=== PATIENT | female | born 1945 | race Asian ===

== ENCOUNTER 2017-10-06 11:09 | Inpatient (IN) | payer OTHER ==
[~2017-10-06] VITALS: Ht 152.4 cm; Wt 83.9 kg
[2017-10-06] VITALS (12 sets, daily range): BP systolic 98–161; BP diastolic 81–99; TEMP 98–98.5; Ht 152.4 cm; Wt 83.9 kg
[~2017-10-06 11:09] MED LIST: ACID REDUCER150 M1 PO; AMLODIPINE BESYLATE PO; DOXYCYCL HYC100 MG PO; MAG OXIDE400 M2 PO; METOCLOPRAM10 MG PO; PANTOPRAZOLE 40MG TA PO; VENL37.511 PO
--- NOTE | 2017-10-06 11:20 | NUR ---
REPORT RECEIVED FROM SHARI VITALE RN FROM [facility] AT THIS TIME
--- NOTE | 2017-10-06 11:23 | NUR ---
PT ARRIVED TO PCU BED 1 AT THIS TIME VIA U BED PER U STAFF. PT IS ALERT AND ORIENTED X1. PT IS ABLE TO TRANSFER TO PCU BED WITH MAX ASSISTANCE. PT IS ON O2 AT 3LPM VIA NC AT THIS TIME. O2 SATS ARE 95% PER PULSE OX. THERE IS EXPIRATORY WHEEZES NOTED BILATERALLY THROUGHOUT LUNG HAYDEN. S1 AND S2 HEART SOUNDS ARE NOTED UPON AUSCULTATION. PT IS RUNNING SINUS RHYTHM 92 BMP PER CUT ORDER HAND. BOWEL SOUNDS ARE PRESENT IN ALL 4 QUADRANTS. LBM WAS ON 10/06/17. PT HAS A 22G IV TO THE RIGHT HAND. IV IS PATENT AND INTACT WITH NS RUNNING AT 83 CCS/HOUR. NO EDEMA NOTED TO THE RHONDA LE'S. PEDAL PULSES ARE PRESENT AND EQUAL BILATERALLY. LOWER EXT SKIN IS DRY AND ASHY BILATERALLY. PT VOICES NO COMPLAINTS AT THIS TIME. BED IS LOCKED AND PLACED IN LOWEST POSITION. [facility]
--- NOTE | 2017-10-06 13:56 | NUR ---
16F METZGER INSERTED AT THIS TIME USING STERILE TECHNIQUE. 50 CC'S OF HUNG URINE NOTED TO THE METZGER BAG. UA COLLECTED AT THIS TIME. PT TOLREATED WELL. WILL CONTINUE TO MONITOR.
--- NOTE | 2017-10-06 14:31 | NUR ---
PT RESTING QUIETLY WITH EYES CLOSED. NAD NOTED. WILL CONTINUE TO MONITOR.
--- NOTE | 2017-10-06 16:13 | NUR ---
PT RESTING QUIETLY WITH EYES CLOSED. NAD NOTED. O2 AT 3LPM VIA NC IN USE AT THIS TIME. WILL CONTINUE TO MONITOR.
--- NOTE | 2017-10-06 19:27 | NUR ---
PATIENT HAVING LIQUID STOOL. DR. KOHLER NOTIFIED. ORDERS RECEIVED TO COLLECT STOOL FOR O&P, CDIFF, AND STOOL CULTURE.
[2017-10-07] VITALS (25 sets, daily range): BP systolic 130–161; BP diastolic 81–137; TEMP 98.1–99.3
[2017-10-07 06:33] LABS: PLATELET COUNT 208 K/uL (152-353)
--- NOTE | 2017-10-07 07:00 | NUR ---
REPORT FROM PM STAFF. PT RESTING QUIETLY ON O2 AT 3L/NC O2 SAT 95%.RR RATE 20. NO C/O AT THIS TIME.
--- NOTE | 2017-10-07 09:09 | NUR ---
PT C/O R KNEE PAIN # 10 ON PAIN SCALE. MEDICATED WITH TRAMODOL 50MG PO,R KNEE POSITIONED ON A PILLOW TO SUPPORT KNEE.
--- NOTE | 2017-10-07 11:00 | NUR ---
BHUPENDRA RICHEY HVAC INSTALLATION TECHNICIAN & DR PÉREZ IN TO SEE PT.
--- NOTE | 2017-10-07 13:00 | NUR ---
PT FED SELF SM AMT OF LUNCH,REPOSITIONED SELF IN BED. O2 SATS 99% ON O2 AT 3L/NC.
--- NOTE | 2017-10-07 15:58 | NUR ---
PT C/O R KNEE PAIN.MEDICATED WITH ULTRAM 50 MG PO PER SHANTEL ALBERTO LPN.
--- NOTE | 2017-10-07 17:00 | NUR ---
LABS CALLED TO DR PRAVEENA ANDRADE RN. NEW ORDERS.
[2017-10-08] VITALS (10 sets, daily range): BP systolic 125–168; BP diastolic 82–116; TEMP 98.3
[2017-10-08 06:03] LABS: POTASSIUM 3.6 mmol/L (3.6-5.2)
[2017-10-08 06:17] LABS: PLATELET COUNT 204 K/uL (152-353)
--- NOTE | 2017-10-08 08:00 | NUR ---
DR. PÉREZ AND BHUPENDRA RICHEY, PROCESSING SUPERVISOR AT BEDSIDE TO SEE PATIENT.
--- NOTE | 2017-10-08 09:15 | NUR ---
PT CALLING OUT FOR "SOMEBODY" WHEN ASKING PT IF THERE WAS ANYTHING WRONG PT STATED "NO, JUST DON'T LEAVE ME"
--- NOTE | 2017-10-08 10:03 | NUR ---
REPORT GIVEN TO SHAREE DORSEY LPN IN [facility] AT THIS TIME.
--- NOTE | 2017-10-08 10:52 | NUR ---
PT TRANSFERRED TO [facility] PER BED AT THIS TIME
[2017-10-20] MEDS ORDERED: LIDOPATCH TOP (17:05)
[2017-10-20] MEDS ORDERED: GABA300C2 PO (17:05)
[2017-10-20] MEDS ORDERED: GABA100C2 PO (17:05)
[2017-10-20] MEDS ORDERED: TRAZ50TA36 PO (17:05)
[2017-10-20] MEDS ORDERED: DULO30CA PO (17:05)
== END 2017-10-08 10:52 | disposition other institution (70) | DRG 189 ==
LOC: ICU 11:09
PROVIDERS: Family Medicine
DX: J96.00 Acute respiratory failure, unspecified whether with hypoxia or hypercapnia (principal); I10 Essential (primary) hypertension; E11.9 Type 2 diabetes mellitus without complications; J44.9 Chronic obstructive pulmonary disease, unspecified; E78.4 Other hyperlipidemia
CPT/HCPCS: 36600; 51702; 80053; 81000; 82550; 82805; 82962; 83735; 84484; 85027; 93005; 94640; 94664; 94760; 96372; J1650; J1940; J3490